=== PATIENT | female | born 1955 | race Caucasian/White ===

== ENCOUNTER 2024-05-24 10:45 | Outpatient (RCR) | payer MEDICARE, OTHER, SELFPAY ==
--- NOTE | 2023-12-09 17:05 | PT.OIE ---
Current Diagnoses Pelvic muscle wasting (12/08/23) Other specified menopausal and perimenopausal disorders (12/08/23) Past Medical History (Last Updated 09/17/23 @ 12:32 by Yasemin Cuenca MD) Genitourinary syndrome of menopause Past Surgical History History of knee replacement Status post bilateral salpingo-oophorectomy (BSO) (08/16/17) Status post vaginal hysterectomy (08/16/17) Visit Care Team Role Provider Type FÉLIX Webber Family Provider Non-Staff Primary Care Provider Specialty: Nursing Address: [address] [place], [place] [id number], [place], [address] Email: Yasemin Cuenca MD Attending Provider Physician Referring Provider Specialty: [employer] Address: [address] [place] [address], [address] Email: [email or web address] Physical Therapy Initial Evaluation PT-OP-A Visit Information Start: 12/08/23 11:17 Freq: Status: Active Protocol: Document 12/08/23 11:17 [facility] (Rec: 12/08/23 11:45 [facility] [id number]) Out-Patient Physical Therapy Visit Information Visit Information Visit Type Initial Evaluation Visit Start Time 11:20 Visit Stop Time 12:00 PT-OP-B Current Condition Start: 12/08/23 11:17 Freq: Status: Active Protocol: Document 12/08/23 11:15 [facility] (Rec: 12/08/23 11:45 [facility] [id number]) Current Condition History of Current Condition Current Complaints pelvic pressure. pelvic pain History of Current Condition history of hysterectomy with rectocele repair with Dr Carter 2018 due to prolapse problems and heavy painful pelivc symptoms 2.5 months ago was lifting something in the yard and she felt some sharp pain in her pelvis and she though she saw a little blood. She does have a history of constipation especialy if she doesn't drink her water. she has had two large accidents after drinking a glass of wine that she leaked once she go to the bathroom. She does sometimes go to the bathroom just in case. She notes she has a lot of arthritis and his 2 TKA and she used to weigh alot more. She doesn't feel the pressure now She feels her general core has gotten weak. She loves walking PT-OP-C Subjective Start: 12/08/23 11:17 Freq: Status: Active Protocol: Document 12/08/23 11:15 [facility] (Rec: 12/09/23 17:04 [facility] [id number]) OP-PT Pain Assessment Pain Assessment Grid Paper Pain Assessment Grid Completed Yes Location pelvic pain Pain Location Details pelvic pain Intensity 2 Scale Used Numeric (0 - 10) Frequency Intermittent Pain Duration pain after heavy lifting PT-OP-I Pelvic Floor Start: 12/08/23 11:17 Freq: Status: Active Protocol: Document 12/08/23 11:15 [facility] (Rec: 12/09/23 16:40 [facility] [id number]) Pelvic Floor Assessment Urine Pelvic Floor Surgery Yes: hysterectomy with rectocele repain in 2018 Urinary Symptoms Falling Out Feeling/Heavy Other Urinary Symptoms pelvic pain, leakage is only if she can't get to the bathroom on time or after 2 glasses of wine she will notice some leakage. pelvic pain is worse after heavylifting PT-OP-Q Treatments Start: 12/08/23 11:17 Freq: Status: Active Protocol: Document 12/08/23 12:22 [facility] (Rec: 12/08/23 12:23 [facility] [id number]) Therapeutic Exercises Supine Exercises hip ER with theraband Reps/Minutes 2-3 sets of 10 reps supine ball squeeze with pelvic floor contraction Reps/Minutes x 10 reps holding 5 seconds and resting 5-10 seconds PT-OP-T Assessment and Plan Start: 12/08/23 11:17 Freq: Status: Active Protocol: Document 12/08/23 11:15 [facility] (Rec: 12/09/23 16:40 [facility] [id number]) Physical Therapy Assessment Rehab Potential Rehabilitation Potential Excellent Evaluation Complexity Number of Personal Factors/Comorbidities 0 Number of Body Systems Impaired 1-2 Clinical Presentation at Evaluation Stable Impairments Impairments Functional Activities,Pain, Soft Tissue Mobility,Strength Other Impairments pelvic pain and heaviness Goals 3 Impairment Decreased pelvic floor endurance Short Term Goal (STG) Michell is able to sustain a pelvic floor contraction in supine x 10 seconds STG Duration 5 weeks Bpm Developer Goal (LTG) Michell is able to sustain a pelvic floor contraction in standing x 5 seconds LTG Duration 12 weeks 2 Impairment Pelvic floor weakness (2/5 MMT ) for all frank of the pelvic clock Fpc Goal (LTG) Michell is able to improve pelvic floor muscle strength by 1 muscle grade for improved support of the bladder and rectum LTG Duration 12 weeks 1 Impairment complaints of pelvic pain and heaviness Short Term Goal (STG) pt is educated on pelvic floor bracing prior to lifting as well as bowel care to promote daily bowel movements to decrease pressure through the rectum STG Duration 4 weeks Fpc Goal (LTG) Michell reports a overall reduction of pelvic pain and heaviness and she is able to brace with her pelvic floor prior to lifting LTG Duration 12 weeks Assessment Summary Assessment 68 yo 3 para 3, S/P LAVH/BSO in 2018. Michell reports that recently she has felt increased pelvic organ prolapse issues and pelvic pressure. Her symptoms began approx 2.5 months ago after she was working in her yard and lifting with straining. She felt a sharp pain in her pelvis and did notice trace amounts of blood when wiping for a few days afterword. She was concerned that maybe she put pressure on her pelvic organs straining her bladder and bowels. Michell does reports a history of constipation. She has been trying to work on this but she does not increased pelvic pressure with a full bowel. She has experienced a couple of episodes after drinking wine of urinary leakage. She was given estrogen cream after her hysterectomy but hasn't used it since then. With pelvic floor exam there is atrophy of the vaginal frank in all areas of the pelvic clock. Michell tests 2/ 5 MMT for levator ani strength . She presents with decreased endurance of the pelvic floor . Michell is a good candidate for pelvic floor endurance training and core stabilization. She was started on pelvic exercises and tolerated these well. Physical Therapy Plan Frequency and Duration Frequency of Treatment 1x/Week Duration of treatment (weeks) 12 Plan of Care Start Date 12/08/23 Plan of Care End Date 02/23/24 Therapeutic Interventions Therapeutic Interventions Home Exercise Program, Neuromuscular Re-education, Patient/Caregiver Education, Self-Care/Home Management, Therapeutic Exercises Modalities Biofeedback Next Visit Focus/Plan Next Note Type Treatment Note Next Visit Plan EMG biofeedback for pelvic floor endurance training and core stabilization
--- NOTE | 2023-12-15 12:33 | PT.OTN ---
Current Diagnoses Pelvic muscle wasting (12/15/23) Other specified menopausal and perimenopausal disorders (12/15/23) Physical Therapy Treatment Note PT-OP-A Visit Information Start: 12/08/23 11:17 Freq: Status: Active Protocol: Document 12/15/23 11:17 [facility] (Rec: 12/15/23 12:33 [facility] [id number]) Out-Patient Physical Therapy Visit Information Visit Information Visit Type Treatment Note Visit Start Time 11:20 Visit Stop Time 12:00 Visit Number 2 PT-OP-B Current Condition Start: 12/08/23 11:17 Freq: Status: Active Protocol: Document 12/08/23 11:15 [facility] (Rec: 12/08/23 11:45 [facility] [id number]) Current Condition History of Current Condition Current Complaints pelvic pressure. pelvic pain History of Current Condition history of hysterectomy with rectocele repair with Dr Carter 2017 due to prolapse problems and heavy painful pelivc symptoms 2.5 months ago was lifting something in the yard and she felt some sharp pain in her pelvis and she though she saw a little blood. She does have a history of constipation especialy if she doesn't drink her water. she has had two large accidents after drinking a glass of wine that she leaked once she go to the bathroom. She does sometimes go to the bathroom just in case. She notes she has a lot of arthritis and his 2 TKA and she used to weigh alot more. She doesn't feel the pressure now She feels her general core has gotten weak. She loves walking PT-OP-C Subjective Start: 12/08/23 11:17 Freq: Status: Active Protocol: Document 12/15/23 11:17 [facility] (Rec: 12/15/23 12:33 [facility] [id number]) OP-PT Subjective Patient Comments Patient Comments pt notes she ordered the ball PT-OP-I Pelvic Floor Start: 12/08/23 11:17 Freq: Status: Active Protocol: Document 12/08/23 11:15 [facility] (Rec: 12/09/23 16:40 [facility] [id number]) Pelvic Floor Assessment Urine Pelvic Floor Surgery Yes: hysterectomy with rectocele repain in 2018 Urinary Symptoms Falling Out Feeling/Heavy Other Urinary Symptoms pelvic pain, leakage is only if she can't get to the bathroom on time or after 2 glasses of wine she will notice some leakage. pelvic pain is worse after heavylifting PT-OP-Q Treatments Start: 12/08/23 11:17 Freq: Status: Active Protocol: Document 12/15/23 11:17 [facility] (Rec: 12/15/23 12:33 [facility] [id number]) Therapeutic Exercises Supine Exercises long holds pelvic floor Reps/Minutes 10 reps Comments average 11.6 and max of 23.1 uv hip ER with theraband Reps/Minutes 2-3 sets of 10 reps supine ball squeeze with pelvic floor contraction Reps/Minutes x 10 reps holding 5 seconds and resting 5-10 seconds Comments average of 10 uv and max of 30 PT-OP-T Assessment and Plan Start: 12/08/23 11:17 Freq: Status: Active Protocol: Document 12/15/23 11:17 [facility] (Rec: 12/15/23 12:33 [facility] [id number]) Physical Therapy Assessment Assessment Summary Assessment EMG biofeedback was initiated today and Michell did much better with pelvic floor isolation. I added on pelvic floor long holds for her HEP and she will continue with the ball squeeze and hip roll outs as well Physical Therapy Plan Frequency and Duration Frequency of Treatment 1x/Week Duration of treatment (weeks) 12 Plan of Care Start Date 12/08/23 Plan of Care End Date 02/23/24 Therapeutic Interventions Therapeutic Interventions Home Exercise Program, Neuromuscular Re-education, Patient/Caregiver Education, Self-Care/Home Management, Therapeutic Exercises Modalities Biofeedback Next Visit Focus/Plan Next Note Type Treatment Note Next Visit Plan continue with EMG biofeedback and pelvic floor endurance training
--- NOTE | 2023-12-29 12:23 | PT.OTN ---
Current Diagnoses Pelvic muscle wasting (12/29/23) Other specified menopausal and perimenopausal disorders (12/29/23) Physical Therapy Treatment Note PT-OP-A Visit Information Start: 12/08/23 11:17 Freq: Status: Active Protocol: Document 12/29/23 11:22 [facility] (Rec: 12/29/23 12:23 [facility] [id number]) Out-Patient Physical Therapy Visit Information Visit Information Visit Type Treatment Note Visit Start Time 11:20 Visit Stop Time 12:00 Visit Number 3 PT-OP-B Current Condition Start: 12/08/23 11:17 Freq: Status: Active Protocol: Document 12/08/23 11:15 [facility] (Rec: 12/08/23 11:45 [facility] [id number]) Current Condition History of Current Condition Current Complaints pelvic pressure. pelvic pain History of Current Condition history of hysterectomy with rectocele repair with Dr Carter 2017 due to prolapse problems and heavy painful pelivc symptoms 2.5 months ago was lifting something in the yard and she felt some sharp pain in her pelvis and she though she saw a little blood. She does have a history of constipation especialy if she doesn't drink her water. she has had two large accidents after drinking a glass of wine that she leaked once she go to the bathroom. She does sometimes go to the bathroom just in case. She notes she has a lot of arthritis and his 2 TKA and she used to weigh alot more. She doesn't feel the pressure now She feels her general core has gotten weak. She loves walking PT-OP-C Subjective Start: 12/08/23 11:17 Freq: Status: Active Protocol: Document 12/29/23 11:22 [facility] (Rec: 12/29/23 12:23 [facility] [id number]) OP-PT Subjective Patient Comments Patient Comments notes she hasn't had any more pain, she has been able to delay the need to void PT-OP-I Pelvic Floor Start: 12/08/23 11:17 Freq: Status: Active Protocol: Document 12/08/23 11:15 [facility] (Rec: 12/09/23 16:40 [facility] [id number]) Pelvic Floor Assessment Urine Pelvic Floor Surgery Yes: hysterectomy with rectocele repain in 2018 Urinary Symptoms Falling Out Feeling/Heavy Other Urinary Symptoms pelvic pain, leakage is only if she can't get to the bathroom on time or after 2 glasses of wine she will notice some leakage. pelvic pain is worse after heavylifting PT-OP-Q Treatments Start: 12/08/23 11:17 Freq: Status: Active Protocol: Document 12/29/23 11:22 [facility] (Rec: 12/29/23 12:23 [facility] [id number]) Therapeutic Exercises Other Exercises sit to stand with pelvic floor Reps/Minutes 10 Self-Care/Home Management Treatment Education Patient Education Home Exercise Program Other Education discussion of using her total gym at home to activate her pelvic floor with her leg presses PT-OP-T Assessment and Plan Start: 12/08/23 11:17 Freq: Status: Active Protocol: Document 12/29/23 11:22 [facility] (Rec: 12/29/23 12:23 [facility] [id number]) Physical Therapy Assessment Goals 3 Impairment Decreased pelvic floor endurance Short Term Goal (STG) Michell is able to sustain a pelvic floor contraction in supine x 10 seconds STG Duration 5 weeks Fuels Engineer Goal (LTG) Michell is able to sustain a pelvic floor contraction in standing x 5 seconds LTG Duration 12 weeks 2 Impairment Pelvic floor weakness (2/5 MMT ) for all frank of the pelvic clock Fdc Goal (LTG) Michell is able to improve pelvic floor muscle strength by 1 muscle grade for improved support of the bladder and rectum LTG Duration 12 weeks 1 Impairment complaints of pelvic pain and heaviness Short Term Goal (STG) pt is educated on pelvic floor bracing prior to lifting as well as bowel care to promote daily bowel movements to decrease pressure through the rectum STG Duration 4 weeks Fdc Goal (LTG) Michell reports a overall reduction of pelvic pain and heaviness and she is able to brace with her pelvic floor prior to lifting LTG Duration 12 weeks Assessment Summary Assessment time was spent today working on pelvic floor recruitment from a sit-stand position and discussion of using Michell's total gym squats with pelvic floor engagement. She is still having difficulty holding for a full 10 seconds but is feeling more pelvic floor engagement. She will start using her radha fit this week as she had to reset it. Physical Therapy Plan Frequency and Duration Frequency of Treatment 1x/Week Duration of treatment (weeks) 12 Plan of Care Start Date 12/08/23 Plan of Care End Date 02/23/24 Therapeutic Interventions Therapeutic Interventions Home Exercise Program, Neuromuscular Re-education, Patient/Caregiver Education, Self-Care/Home Management, Therapeutic Exercises Modalities Biofeedback Next Visit Focus/Plan Next Note Type Treatment Note Next Visit Plan revisit sit-stand with pelvic floor engagement and how Michell did with using her total gym for squats with pelvic floor engagement
--- NOTE | 2024-01-05 12:29 | PT.OTN ---
Current Diagnoses Pelvic muscle wasting (01/05/24) Other specified menopausal and perimenopausal disorders (01/05/24) Physical Therapy Treatment Note PT-OP-A Visit Information Start: 12/08/23 11:17 Freq: Status: Active Protocol: Document 01/05/24 11:17 [facility] (Rec: 01/05/24 12:28 [facility] [id number]) Out-Patient Physical Therapy Visit Information Visit Information Visit Type Treatment Note Visit Start Time 11:17 Visit Stop Time 12:00 Visit Number 4 PT-OP-B Current Condition Start: 12/08/23 11:17 Freq: Status: Active Protocol: Document 12/08/23 11:15 [facility] (Rec: 12/08/23 11:45 [facility] [id number]) Current Condition History of Current Condition Current Complaints pelvic pressure. pelvic pain History of Current Condition history of hysterectomy with rectocele repair with Dr Carter 2017 due to prolapse problems and heavy painful pelivc symptoms 2.5 months ago was lifting something in the yard and she felt some sharp pain in her pelvis and she though she saw a little blood. She does have a history of constipation especialy if she doesn't drink her water. she has had two large accidents after drinking a glass of wine that she leaked once she go to the bathroom. She does sometimes go to the bathroom just in case. She notes she has a lot of arthritis and his 2 TKA and she used to weigh alot more. She doesn't feel the pressure now She feels her general core has gotten weak. She loves walking PT-OP-C Subjective Start: 12/08/23 11:17 Freq: Status: Active Protocol: Document 01/05/24 12:28 [facility] (Rec: 01/05/24 12:29 [facility] [id number]) OP-PT Subjective Patient Comments Patient Comments Fransisca reports she is doing well with pelvic floor exercises, the sit-stand exercises have been a challange for her and she feels she needs to do them from a higher chair Patient Reported Progress Improving PT-OP-I Pelvic Floor Start: 12/08/23 11:17 Freq: Status: Active Protocol: Document 12/08/23 11:15 [facility] (Rec: 12/09/23 16:40 [facility] [id number]) Pelvic Floor Assessment Urine Pelvic Floor Surgery Yes: hysterectomy with rectocele repain in 2018 Urinary Symptoms Falling Out Feeling/Heavy Other Urinary Symptoms pelvic pain, leakage is only if she can't get to the bathroom on time or after 2 glasses of wine she will notice some leakage. pelvic pain is worse after heavylifting PT-OP-Q Treatments Start: 12/08/23 11:17 Freq: Status: Active Protocol: Document 01/05/24 11:17 [facility] (Rec: 01/05/24 12:28 [facility] [id number]) Therapeutic Exercises Supine Exercises TA and pelvic floor with SLR Reps/Minutes x 10 reps Comments right side weaker Sidelying Exercises sidelying leg lift Reps/Minutes 10 reps clam shells Reps/Minutes 10 reps Standing Exercises standing mini squats with hip hinge Reps/Minutes x 10 reps standing hip abduction Reps/Minutes x 10 reps Other Exercises sit to stand with pelvic floor Equipment Used level 3 theraband Reps/Minutes x 10 Comments trial with theraband around thights PT-OP-T Assessment and Plan Start: 12/08/23 11:17 Freq: Status: Active Protocol: Document 01/05/24 11:17 [facility] (Rec: 01/05/24 12:28 [facility] [id number]) Physical Therapy Assessment Goals 3 Impairment Decreased pelvic floor endurance Short Term Goal (STG) Fransisca is able to sustain a pelvic floor contraction in supine x 10 seconds STG Duration 5 weeks Detention Goal (LTG) Fransisca is able to sustain a pelvic floor contraction in standing x 5 seconds LTG Duration 12 weeks 2 Impairment Pelvic floor weakness (2/5 MMT ) for all frank of the pelvic clock Detention Goal (LTG) Fransisca is able to improve pelvic floor muscle strength by 1 muscle grade for improved support of the bladder and rectum LTG Duration 12 weeks 1 Impairment complaints of pelvic pain and heaviness Short Term Goal (STG) pt is educated on pelvic floor bracing prior to lifting as well as bowel care to promote daily bowel movements to decrease pressure through the rectum STG Duration 4 weeks Jig Grinder Goal (LTG) Fransisca reports a overall reduction of pelvic pain and heaviness and she is able to brace with her pelvic floor prior to lifting LTG Duration 12 weeks Assessment Summary Assessment Time was spent today on right sided hip and quad strength as Fransisca still feels weak in the right leg from her Total hip replacement on the right side and she feels weak walking upstairs on the right. I was able to add in core stabilization with hip strenghtening for fransisca today and she tolerates this well Physical Therapy Plan Next Visit Focus/Plan Next Note Type Treatment Note Next Visit Plan return to EMG biofeedback for pelvic floor strengthening next visit and check in with how Fransisca did with new exercises
--- NOTE | 2024-01-12 12:15 | PT.OTN ---
Current Diagnoses Pelvic muscle wasting (01/12/24) Other specified menopausal and perimenopausal disorders (01/12/24) Physical Therapy Treatment Note PT-OP-A Visit Information Start: 12/08/23 11:17 Freq: Status: Active Protocol: Document 01/12/24 11:23 [facility] (Rec: 01/12/24 12:15 [facility] [id number]) Out-Patient Physical Therapy Visit Information Visit Information Visit Type Treatment Note Visit Start Time 11:20 Visit Stop Time 12:00 Visit Number 5 PT-OP-B Current Condition Start: 12/08/23 11:17 Freq: Status: Active Protocol: Document 12/08/23 11:15 [facility] (Rec: 12/08/23 11:45 [facility] [id number]) Current Condition History of Current Condition Current Complaints pelvic pressure. pelvic pain History of Current Condition history of hysterectomy with rectocele repair with Dr Carter 2017 due to prolapse problems and heavy painful pelivc symptoms 2.5 months ago was lifting something in the yard and she felt some sharp pain in her pelvis and she though she saw a little blood. She does have a history of constipation especialy if she doesn't drink her water. she has had two large accidents after drinking a glass of wine that she leaked once she go to the bathroom. She does sometimes go to the bathroom just in case. She notes she has a lot of arthritis and his 2 TKA and she used to weigh alot more. She doesn't feel the pressure now She feels her general core has gotten weak. She loves walking PT-OP-C Subjective Start: 12/08/23 11:17 Freq: Status: Active Protocol: Document 01/12/24 11:23 [facility] (Rec: 01/12/24 12:15 [facility] [id number]) OP-PT Subjective Patient Comments Patient Comments Michell reports she hasn't had any pelvic pain symptoms PT-OP-I Pelvic Floor Start: 12/08/23 11:17 Freq: Status: Active Protocol: Document 12/08/23 11:15 [facility] (Rec: 12/09/23 16:40 [facility] [id number]) Pelvic Floor Assessment Urine Pelvic Floor Surgery Yes: hysterectomy with rectocele repain in 2018 Urinary Symptoms Falling Out Feeling/Heavy Other Urinary Symptoms pelvic pain, leakage is only if she can't get to the bathroom on time or after 2 glasses of wine she will notice some leakage. pelvic pain is worse after heavylifting PT-OP-Q Treatments Start: 12/08/23 11:17 Freq: Status: Active Protocol: Document 01/12/24 11:23 [facility] (Rec: 01/12/24 12:15 [facility] [id number]) Therapeutic Exercises Supine Exercises quick contractions Reps/Minutes x 10 reps 2 sec hold and 2 sec relax long holds pelvic floor Reps/Minutes 10 reps Comments 11.3 and 21.9 hip ER with theraband Reps/Minutes 2-3 sets of 10 reps supine ball squeeze with pelvic floor contraction Comments 20 uv average and max of 30 Self-Care/Home Management Treatment Education Patient Education Home Exercise Program Other Education review of home exercise program PT-OP-T Assessment and Plan Start: 12/08/23 11:17 Freq: Status: Active Protocol: Document 01/12/24 11:23 [facility] (Rec: 01/12/24 12:15 [facility] [id number]) Physical Therapy Assessment Goals 3 Impairment Decreased pelvic floor endurance Short Term Goal (STG) Michell is able to sustain a pelvic floor contraction in supine x 10 seconds STG Duration 5 weeks Heavy Mobile Equipment Operator Goal (LTG) Michell is able to sustain a pelvic floor contraction in standing x 5 seconds LTG Duration 12 weeks 2 Impairment Pelvic floor weakness (2/5 MMT ) for all frank of the pelvic clock Heavy Mobile Equipment Operator Goal (LTG) Michell is able to improve pelvic floor muscle strength by 1 muscle grade for improved support of the bladder and rectum LTG Duration 12 weeks 1 Impairment complaints of pelvic pain and heaviness Short Term Goal (STG) pt is educated on pelvic floor bracing prior to lifting as well as bowel care to promote daily bowel movements to decrease pressure through the rectum STG Duration 4 weeks Penitentiary Goal (LTG) Michell reports a overall reduction of pelvic pain and heaviness and she is able to brace with her pelvic floor prior to lifting LTG Duration 12 weeks Assessment Summary Assessment Michell's symptoms are improved overall, she still needs to work on the endurance holds Physical Therapy Plan Frequency and Duration Frequency of Treatment 1x/Week Duration of treatment (weeks) 12 Plan of Care Start Date 12/08/23 Plan of Care End Date 02/23/24 Therapeutic Interventions Therapeutic Interventions Home Exercise Program, Neuromuscular Re-education, Patient/Caregiver Education, Self-Care/Home Management, Therapeutic Exercises Modalities Biofeedback Next Visit Focus/Plan Next Note Type Treatment Note Next Visit Plan check in with how Michell is doing with her home biofeedback unit and continue working on endurance pelvic floor contractions
--- NOTE | 2024-04-04 16:52 | PT.OTN ---
Current Diagnoses Pelvic muscle wasting (04/04/24) Other specified menopausal and perimenopausal disorders (04/04/24) Physical Therapy Treatment Note PT-OP-A Visit Information Start: 12/08/23 11:17 Freq: Status: Active Protocol: Document 04/04/24 09:48 [facility] (Rec: 04/04/24 10:31 [facility] [id number]) Out-Patient Physical Therapy Visit Information Visit Information Visit Type Progress Note Visit Start Time 09:45 Visit Stop Time 10:30 Visit Number 6 PT-OP-B Current Condition Start: 12/08/23 11:17 Freq: Status: Active Protocol: Document 12/08/23 11:15 [facility] (Rec: 12/08/23 11:45 [facility] [id number]) Current Condition History of Current Condition Current Complaints pelvic pressure. pelvic pain History of Current Condition history of hysterectomy with rectocele repair with Dr Carter 2018 due to prolapse problems and heavy painful pelivc symptoms 2.5 months ago was lifting something in the yard and she felt some sharp pain in her pelvis and she though she saw a little blood. She does have a history of constipation especialy if she doesn't drink her water. she has had two large accidents after drinking a glass of wine that she leaked once she go to the bathroom. She does sometimes go to the bathroom just in case. She notes she has a lot of arthritis and his 2 TKA and she used to weigh alot more. She doesn't feel the pressure now She feels her general core has gotten weak. She loves walking PT-OP-C Subjective Start: 12/08/23 11:17 Freq: Status: Active Protocol: Document 04/04/24 09:48 [facility] (Rec: 04/04/24 10:31 [facility] [id number]) OP-PT Subjective Patient Comments Patient Comments pt reports she had had a tear in her gluteus medius and she had a fracture in her greater trochanter on the left hip. She has been resting her hip since the end of December and didn't walk for exercise. It is doing much better unless she is on it too much or if she twists then it hurts but other than that she isn't hurting. Michell has returned to her pelvic floor islolations but not any of her hip exercises. She reports no complaints of pelvic pain or pressure at this time PT-OP-I Pelvic Floor Start: 12/08/23 11:17 Freq: Status: Active Protocol: Document 12/08/23 11:15 [facility] (Rec: 12/09/23 16:40 [facility] [id number]) Pelvic Floor Assessment Urine Pelvic Floor Surgery Yes: hysterectomy with rectocele repain in 2018 Urinary Symptoms Falling Out Feeling/Heavy Other Urinary Symptoms pelvic pain, leakage is only if she can't get to the bathroom on time or after 2 glasses of wine she will notice some leakage. pelvic pain is worse after heavylifting PT-OP-Q Treatments Start: 12/08/23 11:17 Freq: Status: Active Protocol: Document 04/04/24 09:48 [facility] (Rec: 04/04/24 10:31 [facility] [id number]) Therapeutic Exercises Supine Exercises quick contractions Reps/Minutes x 10 reps 2 sec hold and 2 sec relax long holds pelvic floor Reps/Minutes 10 reps Comments 10.7 and max 21 supine ball squeeze with pelvic floor contraction Reps/Minutes 10 reps Comments average 17.2 and max of 36 Self-Care/Home Management Treatment Education Patient Education Home Exercise Program,Joint Protection PT-OP-T Assessment and Plan Start: 12/08/23 11:17 Freq: Status: Active Protocol: Document 04/04/24 09:48 [facility] (Rec: 04/04/24 10:31 [facility] [id number]) Physical Therapy Assessment Goals 3 Impairment Decreased pelvic floor endurance Short Term Goal (STG) Michell is able to sustain a pelvic floor contraction in supine x 10 seconds good progress STG Duration 5 weeks Intermediate Goal (LTG) Michell is able to sustain a pelvic floor contraction in standing x 5 seconds goal not yet met LTG Duration 12 weeks 2 Impairment Pelvic floor weakness (2/5 MMT ) for all frank of the pelvic clock Intermediate Goal (LTG) Michell is able to improve pelvic floor muscle strength by 1 muscle grade for improved support of the bladder and rectum good progress LTG Duration 12 weeks 1 Impairment complaints of pelvic pain and heaviness Short Term Goal (STG) pt is educated on pelvic floor bracing prior to lifting as well as bowel care to promote daily bowel movements to decrease pressure through the rectum goal met STG Duration 4 weeks Intermediate Goal (LTG) Michell reports a overall reduction of pelvic pain and heaviness and she is able to brace with her pelvic floor prior to lifting Michell notes she isn't having the heaviness right now of the pelvic floor but she has had much more limited activity due to her hip pain LTG Duration 12 weeks Assessment Summary Assessment Michell is no longer feeling the pelvic pain and pressure. She has been on limited activity due to her hip pain she was experiencing. She returns to PT today after not being seen x 2 months and she reports doing much better overall with her hip. She has been able to return to her pelvic floor isolations. She would benefit from continued PT working on endurance training of the pelvic floor Physical Therapy Plan Frequency and Duration Frequency of Treatment 1x/Week Duration of treatment (weeks) 12 Plan of Care Start Date 04/04/24 Plan of Care End Date 06/27/24 Therapeutic Interventions Therapeutic Interventions Home Exercise Program, Neuromuscular Re-education, Patient/Caregiver Education, Self-Care/Home Management, Therapeutic Exercises Modalities Biofeedback Next Visit Focus/Plan Next Note Type Treatment Note Next Visit Plan check in with how Michell is doing with her home biofeedback unit and continue working on endurance pelvic floor contractions
--- NOTE | 2024-04-04 16:52 | PT.OPPOC ---
Physical, Occupational & Speech Therapy At [facility] Current Diagnoses Pelvic muscle wasting (04/04/24) Other specified menopausal and perimenopausal disorders (04/04/24) Visit Care Team Role Provider Type FÉLIX Webber Family Provider Non-Staff Primary Care Provider Specialty: Nursing Address: [address], [place], [address] Email: Yasemin Cuenca MD Attending Provider Physician Referring Provider Specialty: EMAIL DEVELOPER Address: [address] [place] [address], [address], [address] Email: [email or web address] Plan Of Care PT-OP-B Current Condition Start: 12/08/23 11:17 Freq: Status: Active Protocol: Document 12/08/23 11:15 [facility] (Rec: 12/08/23 11:45 [facility] [id number]) Current Condition History of Current Condition Current Complaints pelvic pressure. pelvic pain History of Current Condition history of hysterectomy with rectocele repair with Dr Carter 2018 due to prolapse problems and heavy painful pelvic symptoms 2.5 months ago was lifting something in the yard and she felt some sharp pain in her pelvis and she though she saw a little blood. She does have a history of constipation especially if she doesn't drink her water. she has had two large accidents after drinking a glass of wine that she leaked once she go to the bathroom. She does sometimes go to the bathroom just in case. She notes she has a lot of arthritis and his 2 TKA and she used to weigh a lot more. She doesn't feel the pressure now She feels her general core has gotten weak. She loves walking PT-OP-T Assessment and Plan Start: 12/08/23 11:17 Freq: Status: Active Protocol: Document 04/04/24 09:48 [facility] (Rec: 04/04/24 10:31 [facility] [id number]) Physical Therapy Assessment Goals 3 Impairment Decreased pelvic floor endurance Short Term Goal (STG) Michell is able to sustain a pelvic floor contraction in supine x 10 seconds good progress STG Duration 5 weeks Library Director Goal (LTG) Michell is able to sustain a pelvic floor contraction in standing x 5 seconds goal not yet met LTG Duration 12 weeks 2 Impairment Pelvic floor weakness (2/5 MMT ) for all frank of the pelvic clock Care Home Goal (LTG) Michell is able to improve pelvic floor muscle strength by 1 muscle grade for improved support of the bladder and rectum good progress LTG Duration 12 weeks 1 Impairment complaints of pelvic pain and heaviness Short Term Goal (STG) pt is educated on pelvic floor bracing prior to lifting as well as bowel care to promote daily bowel movements to decrease pressure through the rectum goal met STG Duration 4 weeks Care Home Goal (LTG) Michell reports a overall reduction of pelvic pain and heaviness and she is able to brace with her pelvic floor prior to lifting Michell notes she isn't having the heaviness right now of the pelvic floor but she has had much more limited activity due to her hip pain LTG Duration 12 weeks Assessment Summary Assessment Michell is no longer feeling the pelvic pain and pressure. She has been on limited activity due to her hip pain she was experiencing. She returns to PT today after not being seen x 2 months and she reports doing much better overall with her hip. She has been able to return to her pelvic floor isolations. She would benefit from continued PT working on endurance training of the pelvic floor Physical Therapy Plan Frequency and Duration Frequency of Treatment 1x/Week Duration of treatment (weeks) 12 Plan of Care Start Date 04/04/24 Plan of Care End Date 06/27/24 Therapeutic Interventions Therapeutic Interventions Home Exercise Program, Neuromuscular Re-education, Patient/Caregiver Education, Self-Care/Home Management, Therapeutic Exercises Modalities Biofeedback Next Visit Focus/Plan Next Note Type Treatment Note Next Visit Plan check in with how Michell is doing with her home biofeedback unit and continue working on endurance pelvic floor contractions Plan of Care Dates Plan of Care Start Date 04/04/24 Plan of Care End Date 06/27/24 Electronically Signed by: Halle Hale, PT 04/04/24 [id number] If you are in agreement with this Plan of Care, please return a signed and dated copy. I have reviewed this Plan of Care and certify that the skilled therapy services above are required to meet the patient?s needs. Physician Signature Date Printed Name and Credentials Clinical Instructor Signature Printed Name and Credentials
--- NOTE | 2024-04-11 13:24 | PT.OTN ---
Current Diagnoses Pelvic muscle wasting (04/11/24) Other specified menopausal and perimenopausal disorders (04/11/24) Physical Therapy Treatment Note PT-OP-A Visit Information Start: 12/08/23 11:17 Freq: Status: Active Protocol: Document 04/11/24 09:45 [facility] (Rec: 04/11/24 13:22 [facility] [id number]) Out-Patient Physical Therapy Visit Information Visit Information Visit Type Treatment Note Visit Start Time 09:45 Visit Stop Time 10:30 Visit Number 7 PT-OP-B Current Condition Start: 12/08/23 11:17 Freq: Status: Active Protocol: Document 12/08/23 11:15 [facility] (Rec: 12/08/23 11:45 [facility] [id number]) Current Condition History of Current Condition Current Complaints pelvic pressure. pelvic pain History of Current Condition history of hysterectomy with rectocele repair with Dr Carter 2017 due to prolapse problems and heavy painful pelivc symptoms 2.5 months ago was lifting something in the yard and she felt some sharp pain in her pelvis and she though she saw a little blood. She does have a history of constipation especialy if she doesn't drink her water. she has had two large accidents after drinking a glass of wine that she leaked once she go to the bathroom. She does sometimes go to the bathroom just in case. She notes she has a lot of arthritis and his 2 TKA and she used to weigh alot more. She doesn't feel the pressure now She feels her general core has gotten weak. She loves walking PT-OP-C Subjective Start: 12/08/23 11:17 Freq: Status: Active Protocol: Document 04/11/24 09:49 [facility] (Rec: 04/11/24 10:29 [facility] [id number]) OP-PT Subjective Patient Comments Patient Comments pt was able to add back in her exercises and she did okay with her hip. Still no pelvic pressure PT-OP-I Pelvic Floor Start: 12/08/23 11:17 Freq: Status: Active Protocol: Document 12/08/23 11:15 [facility] (Rec: 12/09/23 16:40 [facility] [id number]) Pelvic Floor Assessment Urine Pelvic Floor Surgery Yes: hysterectomy with rectocele repain in 2018 Urinary Symptoms Falling Out Feeling/Heavy Other Urinary Symptoms pelvic pain, leakage is only if she can't get to the bathroom on time or after 2 glasses of wine she will notice some leakage. pelvic pain is worse after heavylifting PT-OP-Q Treatments Start: 12/08/23 11:17 Freq: Status: Active Protocol: Document 04/11/24 09:49 [facility] (Rec: 04/11/24 10:29 [facility] [id number]) Therapeutic Exercises Supine Exercises templates for eccentric control and coordination Supine Exercise Name with EMG biofeedback Reps/Minutes x 5 min TA and pelvic floor with SLR Reps/Minutes x 10 reps Comments right side weaker quick contractions Reps/Minutes x 10 reps 2 sec hold and 2 sec relax Comments MAX 30 long holds pelvic floor Reps/Minutes 10 reps Comments average 13 and mAX OF 29 supine ball squeeze with pelvic floor contraction Reps/Minutes 10 reps Comments average 17.2 and max of 36 Self-Care/Home Management Treatment Education Patient Education Home Exercise Program Other Education urge deference technique was reviewed for Michell PT-OP-T Assessment and Plan Start: 12/08/23 11:17 Freq: Status: Active Protocol: Document 04/11/24 09:45 [facility] (Rec: 04/11/24 13:22 [facility] [id number]) Physical Therapy Assessment Assessment Summary Assessment Michell is doing well resuming her pelvic floor exercises. We added in her core stabilization with SLR today and her hip tolerated this well. Her endurance holds are improved. She is doing well without any pelvic pain or pressure. She has one visit left and we will most likely DC her at that time to a [facility] Physical Therapy Plan Frequency and Duration Frequency of Treatment 1x/Week Duration of treatment (weeks) 12 Plan of Care Start Date 04/04/24 Plan of Care End Date 06/27/24 Therapeutic Interventions Therapeutic Interventions Home Exercise Program, Neuromuscular Re-education, Patient/Caregiver Education, Self-Care/Home Management, Therapeutic Exercises Modalities Biofeedback Next Visit Focus/Plan Next Note Type Treatment Note Next Visit Plan review all exercises and assess if next visit will be Michell's last PT visit
--- NOTE | 2024-04-11 13:25 | PT.OTN ---
Current Diagnoses Pelvic muscle wasting (04/11/24) Other specified menopausal and perimenopausal disorders (04/11/24) Physical Therapy Treatment Note PT-OP-A Visit Information Start: 12/08/23 11:17 Freq: Status: Active Protocol: Document 04/11/24 09:45 [facility] (Rec: 04/11/24 13:22 [facility] [id number]) Out-Patient Physical Therapy Visit Information Visit Information Visit Type Treatment Note Visit Start Time 09:45 Visit Stop Time 10:30 Visit Number 7 PT-OP-B Current Condition Start: 12/08/23 11:17 Freq: Status: Active Protocol: Document 12/08/23 11:15 [facility] (Rec: 12/08/23 11:45 [facility] [id number]) Current Condition History of Current Condition Current Complaints pelvic pressure. pelvic pain History of Current Condition history of hysterectomy with rectocele repair with Dr Carter 2017 due to prolapse problems and heavy painful pelivc symptoms 2.5 months ago was lifting something in the yard and she felt some sharp pain in her pelvis and she though she saw a little blood. She does have a history of constipation especialy if she doesn't drink her water. she has had two large accidents after drinking a glass of wine that she leaked once she go to the bathroom. She does sometimes go to the bathroom just in case. She notes she has a lot of arthritis and his 2 TKA and she used to weigh alot more. She doesn't feel the pressure now She feels her general core has gotten weak. She loves walking PT-OP-C Subjective Start: 12/08/23 11:17 Freq: Status: Active Protocol: Document 04/11/24 09:49 [facility] (Rec: 04/11/24 10:29 [facility] [id number]) OP-PT Subjective Patient Comments Patient Comments pt was able to add back in her exercises and she did okay with her hip. Still no pelvic pressure PT-OP-I Pelvic Floor Start: 12/08/23 11:17 Freq: Status: Active Protocol: Document 12/08/23 11:15 [facility] (Rec: 12/09/23 16:40 [facility] [id number]) Pelvic Floor Assessment Urine Pelvic Floor Surgery Yes: hysterectomy with rectocele repain in 2018 Urinary Symptoms Falling Out Feeling/Heavy Other Urinary Symptoms pelvic pain, leakage is only if she can't get to the bathroom on time or after 2 glasses of wine she will notice some leakage. pelvic pain is worse after heavylifting PT-OP-Q Treatments Start: 12/08/23 11:17 Freq: Status: Active Protocol: Document 04/11/24 09:49 [facility] (Rec: 04/11/24 10:29 [facility] [id number]) Therapeutic Exercises Supine Exercises templates for eccentric control and coordination Supine Exercise Name with EMG biofeedback Reps/Minutes x 5 min TA and pelvic floor with SLR Reps/Minutes x 10 reps Comments right side weaker quick contractions Reps/Minutes x 10 reps 2 sec hold and 2 sec relax Comments MAX 30 long holds pelvic floor Reps/Minutes 10 reps Comments average 13 and mAX OF 29 supine ball squeeze with pelvic floor contraction Reps/Minutes 10 reps Comments average 17.2 and max of 36 Self-Care/Home Management Treatment Education Patient Education Home Exercise Program Other Education urge deference technique was reviewed for Michell PT-OP-T Assessment and Plan Start: 12/08/23 11:17 Freq: Status: Active Protocol: Document 04/11/24 09:45 [facility] (Rec: 04/11/24 13:22 [facility] [id number]) Physical Therapy Assessment Assessment Summary Assessment Michell is doing well resuming her pelvic floor exercises. We added in her core stabilization with SLR today and her hip tolerated this well. Her endurance holds are improved. She is doing well without any pelvic pain or pressure. She has one visit left and we will most likely DC her at that time to a [facility] Physical Therapy Plan Frequency and Duration Frequency of Treatment 1x/Week Duration of treatment (weeks) 12 Plan of Care Start Date 04/04/24 Plan of Care End Date 06/27/24 Therapeutic Interventions Therapeutic Interventions Home Exercise Program, Neuromuscular Re-education, Patient/Caregiver Education, Self-Care/Home Management, Therapeutic Exercises Modalities Biofeedback Next Visit Focus/Plan Next Note Type Treatment Note Next Visit Plan review all exercises and assess if next visit will be Michell's last PT visit
--- NOTE | 2024-05-24 12:33 | PT.OTN ---
Current Diagnoses Pelvic muscle wasting (05/24/24) Other specified menopausal and perimenopausal disorders (05/24/24) Physical Therapy Treatment Note PT-OP-A Visit Information Start: 12/08/23 11:17 Freq: Status: Active Protocol: Document 05/24/24 12:23 [facility] (Rec: 05/24/24 12:23 [facility] [id number]) Out-Patient Physical Therapy Visit Information Visit Information Visit Type Treatment Note Visit Start Time 10:45 Visit Stop Time 11:30 Visit Number 8 PT-OP-B Current Condition Start: 12/08/23 11:17 Freq: Status: Active Protocol: Document 12/08/23 11:15 [facility] (Rec: 12/08/23 11:45 [facility] [id number]) Current Condition History of Current Condition Current Complaints pelvic pressure. pelvic pain History of Current Condition history of hysterectomy with rectocele repair with Dr Carter 2017 due to prolapse problems and heavy painful pelivc symptoms 2.5 months ago was lifting something in the yard and she felt some sharp pain in her pelvis and she though she saw a little blood. She does have a history of constipation especialy if she doesn't drink her water. she has had two large accidents after drinking a glass of wine that she leaked once she go to the bathroom. She does sometimes go to the bathroom just in case. She notes she has a lot of arthritis and his 2 TKA and she used to weigh alot more. She doesn't feel the pressure now She feels her general core has gotten weak. She loves walking PT-OP-C Subjective Start: 12/08/23 11:17 Freq: Status: Active Protocol: Document 05/24/24 10:48 [facility] (Rec: 05/24/24 11:28 [facility] [id number]) OP-PT Subjective Patient Comments Patient Comments pt notes she went back to yoga yesterday pelvic floor dorsey she hasn't had any problems PT-OP-I Pelvic Floor Start: 12/08/23 11:17 Freq: Status: Active Protocol: Document 12/08/23 11:15 [facility] (Rec: 12/09/23 16:40 [facility] [id number]) Pelvic Floor Assessment Urine Pelvic Floor Surgery Yes: hysterectomy with rectocele repain in 2018 Urinary Symptoms Falling Out Feeling/Heavy Other Urinary Symptoms pelvic pain, leakage is only if she can't get to the bathroom on time or after 2 glasses of wine she will notice some leakage. pelvic pain is worse after heavylifting PT-OP-Q Treatments Start: 12/08/23 11:17 Freq: Status: Active Protocol: Document 05/24/24 10:48 [facility] (Rec: 05/24/24 11:28 [facility] [id number]) Therapeutic Exercises Supine Exercises templates for eccentric control and coordination Supine Exercise Name with EMG biofeedback Reps/Minutes x 5 min quick contractions Reps/Minutes x 10 reps 2 sec hold and 2 sec relax Comments MAX 30 long holds pelvic floor Reps/Minutes 10 reps Comments average 11 hip ER with theraband Reps/Minutes Hip ER without theraband Comments no increased pain and good increase of pelvic floor elevation supine ball squeeze with pelvic floor contraction Reps/Minutes 10 reps Comments 15,4 uv average Self-Care/Home Management Treatment Education Patient Education Home Exercise Program Other Education review of both home exercise program and urge deference technique. We also discussed when to stop water intake for the day and to keep track of nocturia after yoga sessions as pt was educated on how fluid build up in the legs during the day can contribute to nocturia. PT-OP-T Assessment and Plan Start: 12/08/23 11:17 Freq: Status: Active Protocol: Document 05/24/24 10:48 [facility] (Rec: 05/24/24 11:28 [facility] [id number]) Physical Therapy Assessment Goals 3 Impairment Decreased pelvic floor endurance Short Term Goal (STG) Michell is able to sustain a pelvic floor contraction in supine x 10 seconds goal met STG Duration 5 weeks [employer] Goal (LTG) Michell is able to sustain a pelvic floor contraction in standing x 5 seconds goal not yet met LTG Duration 12 weeks 2 Impairment Pelvic floor weakness (2/5 MMT ) for all frank of the pelvic clock [employer] Goal (LTG) Michell is able to improve pelvic floor muscle strength by 1 muscle grade for improved support of the bladder and rectum good progress LTG Duration 12 weeks 1 Impairment complaints of pelvic pain and heaviness Short Term Goal (STG) pt is educated on pelvic floor bracing prior to lifting as well as bowel care to promote daily bowel movements to decrease pressure through the rectum goal met STG Duration 4 weeks [facility] Goal (LTG) Michell reports a overall reduction of pelvic pain and heaviness and she is able to brace with her pelvic floor prior to lifting goal met LTG Duration 12 weeks Assessment Summary Assessment Michell is doing well with her home program and has been able to return to all her exercises except hip ER with theraband. She is no longer feeling the pelvic pressure and heaviness Physical Therapy Plan Discharge Physical Therapy Discharge Reasons Goals Met Discharge Comments pt is independent with her HEP at this point and is no longer feeling pelvic pressure and heaviness. She still needs to work on upright strengthening but all other goals are met.
== END 2024-05-25 13:34 | disposition home or self-care (01) ==
LOC: PHYS 10:45
PROVIDERS: Family Provider Nurse Practitioner Family; PCP Nurse Practitioner Family; Referring Provider Obstetrics & Gynecology; Visit Provider Obstetrics & Gynecology
DX: N95.8 Other specified menopausal and perimenopausal disorders (principal); N81.84 Pelvic muscle wasting
CPT/HCPCS: 97110; 97161; 97535

== ENCOUNTER → 2025-04-09 10:24 | Outpatient (CLI) | payer MEDICARE, OTHER, SELFPAY ==
--- NOTE | 2025-04-09 10:28 | DI.RAD.S_ITS ---
PROCEDURE: XR HIP W PEL IF DONE BILAT 2V INDICATIONS: sciatica pain;hip pain TECHNIQUE: AP pelvis with lateral view(s) of the bilateral hip(s). COMPARISON: None. FINDINGS: Bones: No fractures or dislocations. Moderate to severe bilateral hip joint osteoarthritic changes are seen worse on the right side. No evidence of avascular necrosis of femoral heads. Pelvic ring appears intact. No suspicious bony lesions. Soft tissues: The visualized bowel gas pattern is normal. No suspicious soft tissue calcifications. IMPRESSION: No pelvic or hip fracture. Right worse than left bilateral hip joint osteoarthritis as above. No evidence of avascular necrosis. Dictated by: Vik Mesa M.D. on 04/09/2025 at 13:34 Approved by: Vik Mesa M.D. on 04/09/2025 at 13:35
--- NOTE | 2025-04-09 10:28 | DI.RAD.S_ITS ---
PROCEDURE: XR LUMBAR SPINE 2-3V INDICATIONS: sciatica pain;hip pain TECHNIQUE: 3 views of the lumbar spine were acquired. COMPARISON: None. FINDINGS: Bones: There is mild rightward curvature of lumbar spine with apex at L3-4 level. 6 mm anterolisthesis of L4 on L5 and 8 mm anterolisthesis of L5 on S1, 4 mm retrolisthesis of L1 on L2 is also seen. 5 zej-kgv-fzhoplx vertebrae are present. Degenerative endplate changes, loss of disc height and bilateral facet arthrosis throughout lumbar spine is seen. No vertebral body compression fractures. No suspicious bony lesions. Soft tissues: Overlying bowel gas pattern is normal. No suspicious soft tissue calcifications. IMPRESSION: Grade 1 spondylolisthesis throughout lumbar spine as above. Mild rightward curvature of lumbar spine. No acute vertebral body compression fracture. Ranj-on-azpogabv spondylitic changes lumbar spine. Dictated by: Vik Mesa M.D. on 04/09/2025 at 13:27 Approved by: Vik Mesa M.D. on 04/09/2025 at 13:34
[2025-04-09 11:21] LABS: Add Manual Diff / Slide Review NO; Hematocrit 42.5 % (36-46); Hemoglobin 14.3 g/dL (12.0-16.0); Lymphocytes Absolute Auto 1300 /uL (1100-4500); Mean Corpuscular HGB Conc 33.7 % (30-36); Mean Corpuscular Hemoglobin 31.2 PG (26-34); Mean Corpuscular Volume 92.5 fL (80-100); Platelet Count 225 X10^3/uL (150-400)
[2025-04-09 11:46] LABS: Alanine Aminotransferase 33 IU/L (<35); Albumin 4.2 g/dL (3.5-5.0); Albumin Globulin Ratio 1.6 (1.0-2.8); Alkaline Phosphatase 57 U/L (38-126); Blood Urea Nitrogen 23 mg/dL (7-17); Calcium 9.1 mg/dL (8.4-10.2); Carbon Dioxide 31 mmol/L (22-32); Chloride 104 mmol/L (98-107); Estimated Glomerular Filt Rate > 60 mL/min (>60); Globulin 2.6 g/dL (1.7-4.1); Glucose 97 mg/dL (70-99); HEMOLYSIS < 15 (0-50); Potassium 4.3 mmol/L (3.4-5.1); Sodium 140 mmol/L (137-145); Total Protein 6.8 g/dL (6.3-8.2)
[2025-04-09 12:17] LABS: TSH w/ Reflex to FT4 0.34 uIU/mL (0.47-4.68)
[2025-04-09 12:36] LABS: Vitamin B12 Reflex MMA if <400 791 pg/mL (239-931)
[2025-04-09 12:53] LABS: Folate 19.1 ng/mL (2.76-20.0)
[2025-04-09 14:03] LABS: Free T4, Direct Thyroxine 2.51 ng/dL (0.78-2.19)
== END ==
PROVIDERS: Family Provider Nurse Practitioner Family; PCP Family Medicine; Referring Provider Family Medicine; Visit Provider Family Medicine
DX: M16.0 Bilateral primary osteoarthritis of hip (principal); E03.9 Hypothyroidism, unspecified; E78.5 Hyperlipidemia, unspecified; I10 Essential (primary) hypertension; M54.31 Sciatica, right side; M54.32 Sciatica, left side; M06.9 Rheumatoid arthritis, unspecified; M25.551 Pain in right hip; M25.552 Pain in left hip; F32.A Depression, unspecified; Z68.30 Body mass index [BMI] 30.0-30.9, adult
CPT/HCPCS: 36415; 72100; 73521; 80053; 82607; 82746; 84439; 84443; 85025

== ENCOUNTER → 2025-04-19 14:51 | Outpatient (CLI) | payer MEDICARE, OTHER, SELFPAY | LOC: PHYS 14:52 | PROVIDERS: Family Provider Family Medicine; PCP Family Medicine; Referring Provider Family Medicine; Visit Provider Family Medicine | DX: M25.551 Pain in right hip (principal); M25.552 Pain in left hip; M06.9 Rheumatoid arthritis, unspecified | CPT/HCPCS: 95886; 95910 ==

== ENCOUNTER → 2025-05-14 10:50 | Outpatient (CLI) | payer MEDICARE, OTHER, SELFPAY ==
--- NOTE | 2025-05-14 10:51 | DI.MRI.S_ITS ---
PROCEDURE: MR PELVIS WO CON INDICATIONS: Abnormal EEG, bilat hip pain worse on lt, rt leg numbness TECHNIQUE: Noncontrast coronal and axial T1 spin echo and STIR through the bony pelvis. COMPARISON: None. FINDINGS: Image quality: Excellent. Bones: Moderate bilateral hip joint osteoarthritic changes are seen slightly worse on the left side. No acute fracture or dislocation. No evidence of avascular necrosis of femoral heads. No suspicious intraosseous lesions. Uliz-io-dyoaawuq degenerative disc disease in visualized lower lumbar spine is seen. Tendons: Tendinosis and low-grade partial-thickness tear involving distal bilateral gluteus medius tendon is seen at their insertions on greater trochanter. Distal bilateral gluteus minimus tendinosis is seen. Small amount of fluid is seen in bilateral trochanteric bursa concerning for low-grade bursitis. The nearby proximal iliotibial band also appears intact. The iliopsoas tendon appears intact, without adjacent bursal fluid collections or evidence for impingement syndrome. Bilateral hamstring tendon origins are intact at the ischial tuberosities. Large ihyvx-ah-ruwp shows fraying and T2 hyperintense signal in bilateral superior anterior acetabular labrum suggestive of labral tear. Thinning of articulating cartilages over bilateral femoral heads are seen. Soft tissues: Visualized muscles demonstrate normal bulk and internal signal. No joint effusions. No free pelvic fluid. Bladder wall thickness is normal. Genitourinary structures and bowel loops appear normal where visualized. IMPRESSION: 1. Moderate left worse than right bilateral hip joint osteoarthritis. No fracture or dislocation. No evidence of avascular necrosis of femoral heads. No suspicious bony lesions. 2. Low-grade partial-thickness tear involving bilateral distal gluteus medius tendons. Bilateral gluteus minimus tendinosis. Small amount of fluid distending bilateral trochanteric bursa concerning for low-grade bursitis. No other muscle or tendon signal abnormalities are seen. 3. Suggestion of fairly extensive bilateral superior anterior acetabular labral tear. Dictated by: Vik Mesa M.D. on 05/14/2025 at 13:20 Approved by: Vik Mesa M.D. on 05/14/2025 at 13:46
--- NOTE | 2025-05-14 10:51 | DI.RAD.S_ITS ---
PROCEDURE: XR DEXA AXIAL SKELETON INDICATIONS: Osteoporosis screening COMPARISON: None. FINDINGS: Lumbar Spine: Bone mineral density 1.133 g/cm2, T score 0.7. Left Femoral Neck: Bone mineral density 0.729 g/cm2, T score -1.1. Left Hip: Bone mineral density 0.818 g/cm2, T score -1.0. Fracture Risk Calculation (when applicable): 10-year fracture risk of a major osteoporotic fracture 18 percent and of a hip fracture 2.4 percent. (T score greater or equal to -1.0 to: NORMAL) (T score from -1.1 to -2.4: OSTEOPENIA) (T score less than or equal to -2.5: OSTEOPOROSIS) IMPRESSION: Osteopenia. Follow-up guidelines as follows: Osteoporosis: Consider a repeat DEXA and Vertebral Fracture Assessment (VFA) exam in 2 years or sooner if medically necessary, to reassess this patient's status. Osteopenia: Consider a repeat DEXA in 2-3 years to reassess this patient's status, or if there is a new clinical indication. Normal: Consider a repeat DEXA in 5 years or sooner, or if there is a new clinical indication. All treatment decisions require clinical judgment and consideration of individual patient factors, including patient preferences, comorbidities, previous drug use, risk factors not captured in the FRAX model (e.g., frailty, falls, vitamin D deficiency, increased bone turnover, interval significant decline in bone density ) and possible under- or over-estimation of fracture risk by FRAX. In addition, the NOF Guide recommends that FDA-approved medical therapies be considered in postmenopausal women and men age >= 50 years with a: * Hip or vertebral (clinical or morphometric) fracture * T-score of <=-2.5 at the spine or hip * Ten-year fracture probability by FRAX of >= 3% for hip fracture or >=20% for major osteoporotic fracture. Dictated by: Joni Whyte M.D. on 05/14/2025 at 13:44 Approved by: Joni Whyte M.D. on 05/14/2025 at 13:47
== END ==
LOC: RAD 10:51
PROVIDERS: PCP Family Medicine; Referring Provider Family Medicine; Visit Provider Family Medicine
DX: S39.013A Strain of muscle, fascia and tendon of pelvis, initial encounter (principal); M16.0 Bilateral primary osteoarthritis of hip; M25.551 Pain in right hip; M25.552 Pain in left hip; M85.89 Other specified disorders of bone density and structure, multiple sites; Z78.0 Asymptomatic menopausal state; R20.0 Anesthesia of skin; R29.898 Other symptoms and signs involving the musculoskeletal system
CPT/HCPCS: 72195; 77080